=== PATIENT | female | born 1935 | race Caucasian/White ===

== ENCOUNTER 2021-12-28 20:59 | Emergency (ER) | payer MEDICARE, BC ==
[~2021-12-28] VITALS: Ht 160 cm; Wt 72.6 kg
--- NOTE | 2021-12-28 21:15 | NUR ---
TO ER BED 13. BIBPA FROM [facility] C/O LEFT FOOT PAIN. SENT BY DR TAPIA. PT IS CONFUSED, AAOX1. NOT AMBULATORY DUE TO LEG PAIN. BREATHING IS EVEN AND UNLABORED. CONNECTED TO MONITOR. AWAITING MD GUZMAN
--- NOTE | 2021-12-28 21:38 | NUR ---
BLOOD WORK COLLECTED SENT TO LAB
[2021-12-28 21:54] LABS: BASOPHILS # (AUTO) 0.1 K/uL (0.0-0.2); BASOPHILS % (AUTO) 0.8 % (0.0-2.0); HEMATOCRIT 40 % (33-45); LYMPHOCYTES # (AUTO) 1.5 K/uL (0.8-4.8); LYMPHOCYTES % (AUTO) 15.4 % (20.0-44.0); MEAN CORPUSCULAR HGB CONC 33 g/dl (31.0-36.0); MEAN CORPUSCULAR VOLUME 83 fL (82-100); MONOCYTES # (AUTO) 0.8 K/uL (0.1-1.30); MONOCYTES % (AUTO) 8.7 % (2.0-12.0); NEUTROPHILS % (AUTO) 73.1 % (43.0-81.0); PLATELET COUNT (AUTO) 264 K/uL (150-450); RED BLOOD CELL COUNT(AUTO) 4.77 MIL/uL (4.0-5.2); WHITE BLOOD COUNT (AUTO) 9.6 K/uL (4.3-11.0)
[2021-12-28 22:13] LABS: ALANINE AMINOTRANSFERASE 16 U/L (12-78); ALBUMIN 3.4 g/dL (3.4-5.0); ALKALINE PHOSPHATASE 88 U/L (46-116); ASPARTATE AMINOTRANSFERASE 13 U/L (15-37); BILIRUBIN,DIRECT 0.1 mg/dL (0.0-0.2); BILIRUBIN,TOTAL 0.5 mg/dL (0.2-1.0); CARBON DIOXIDE 30 mmol/L (21-32); CHLORIDE 105 mmol/L (98-107); GLUCOSE 129 mg/dL (74-106); POTASSIUM 4.6 mmol/L (3.5-5.1); SODIUM SERUM 140 mmol/L (136-145); TOTAL PROTEIN, SERUM 7.3 g/dL (6.4-8.2); UREA NITROGEN, BLOOD 27 mg/dL (7-18)
--- NOTE | 2021-12-28 22:59 | NUR ---
URINE SAMPLE COLLECTED AND SENT TO LAB
--- NOTE | 2021-12-28 22:59 | NUR ---
COVID SWAB COLLECTED
--- NOTE | 2021-12-28 23:00 | NUR ---
PT TAKEN FOR CT SCAN
[2021-12-28 23:28] LABS: BILIRUBIN,URINE NEGATIVE (NEGATIVE); COLOR,URINE YELLOW (YELLOW); LEUKOCYTE ESTERASE ,URINE TRACE (NEGATIVE); NITRITE, URINE POSITIVE (NEGATIVE); PROTEIN,URINE TRACE mg/dl (NEGATIVE); UGLUCOSE NEGATIVE (NEGATIVE); UROBILINOGEN,URINE 0.2 EU/dL (0.2)
[2021-12-29] MEDS ORDERED: NITR100C6 PO (00:07)
[2021-12-29] MEDS ORDERED: NITROFURANTOIN/MONOHYDRATE MACROCRYSTALS 100 MG CAPSULE ONE ×2 (00:23→00:35)
[2021-12-29] MEDS ORDERED: NITROFURANTOIN/MONOHYDRATE MACROCRYSTALS 100 MG CAPSULE PO ONE (00:30)
--- NOTE | 2021-12-29 01:08 | NUR ---
[facility] AT BEDSIDE FOR TRANSPORTATION BACK TO FACILITY.
--- NOTE | 2021-12-29 01:08 | NUR ---
REPORT GIVEN TO PAUL ZEPEDA AT [facility]
[2021-12-29 01:10] VITALS: BP 148/80
--- NOTE | 2021-12-29 01:12 | NUR ---
IV removed. Catheter intact and site benign. Pressure and 4x4 applied to site. No bleeding noted.
[2021-12-29 06:31] LABS: RBC,URINE 0-2 /HPF (0-2)
[2021-12-29 06:32] LABS: BACTERIA,URINE Moderate /HPF (None Seen)
[2021-12-29 06:33] LABS: SQUAMOUS EPITHELIAL CELL,UR Few /HPF (None Seen)
== END 2021-12-29 01:12 ==
LOC: ER 21:10
DX: N39.0 Urinary tract infection, site not specified (principal); S90.112A Contusion of left great toe without damage to nail, initial encounter; X58.XXXA Exposure to other specified factors, initial encounter; Y92.89 Other specified places as the place of occurrence of the external cause; M85.872 Other specified disorders of bone density and structure, left ankle and foot; R77.8 Other specified abnormalities of plasma proteins; R91.8 Other nonspecific abnormal finding of lung field; Z20.822 Contact with and (suspected) exposure to COVID-19; I10 Essential (primary) hypertension; Z88.6 Allergy status to analgesic agent; F03.90 Unspecified dementia, unspecified severity, without behavioral disturbance, psychotic disturbance, mood disturbance, and anxiety
CPT/HCPCS: 36415; 71045-TC; 73660-TC; 73700-TC; 80048-TC; 80076-TC; 81001; 83605-TC; 84484-TC; 85025-TC; 85730-TC; 87040-TC; 87086-TC; 87186-TC; C9803